=== PATIENT | male | born 1990 | race African-American/Black ===

== ENCOUNTER 2018-08-17 14:45 | Emergency (ER) | payer SELFPAY ==
[~2018-08-17] VITALS: Ht 165.1 cm; Wt 82.6 kg
[2018-08-17 15:00] VITALS: BP 132/90
== END 2018-08-17 15:33 | disposition home or self-care (01) ==
LOC: ED 15:25
DX: Z11.4 Encounter for screening for human immunodeficiency virus [HIV] (principal)
CPT/HCPCS: 99281